=== PATIENT | male | born 1975 | race Hispanic/Latino ===

== ENCOUNTER 2016-12-01 06:57 | Emergency (ER) | payer OTHER ==
[~2016-12-01] VITALS: Ht 175.3 cm; Wt 108.9 kg
[~2016-12-01 06:57] MED LIST: ASPIR 8181 MG PO; IBUPROFEN800 MG PO; METFORMIN500 MG PO
--- NOTE | 2016-12-01 07:26 | ED HAND/WRIST INJURY COMPLAINT ---
History of Present Illness General Chief Complaint: Hand or Wrist Injury Stated Complaint: LT RING FINGER INJURY HIT IT WITH WEIGHT AT GYM Source: patient Exam Limitations: no limitations Vital Signs & Intake/Output Vital Signs & Intake/Output ED Intake and Output 12/02 0000 12/01 1200 Intake Total Output Total Balance Patient 240 lb Weight Allergies Coded Allergies: NO KNOWN ALLERGIES (06/18/12) Reconcile Medications Augmentin (Augmentin 500-125 Tablet) 500 MG-125 MG TABLET 1 TAB PO TID FINGER LACERATION Ibuprofen 800 MG TAB 1 TAB PO TID PRN PAIN Linagliptin/Metformin HCl (Jentadueto 2.5 MG-500 MG Tab) 2.5 MG-500 MG TABLET 1 TAB PO BID DIABETES (Reported) Oxycodone HCl/Acetaminophen (Percocet 5-325 MG Tablet) 5 MG-325 MG TABLET 1-2 TAB PO Q6P PRN pain Triage Note: STATES THAT 30 MINUTES PRIOR TO ARRIVAL HE WAS AT GYM AND SMASHED L POINTER FINGER BETWEEN [address], TOOK MOTRIN 20 MINUTES AGO , PT STATES THAT FINGER TIP WAS DISLOCATED AND HE PUT IT BACK. Triage Nurses Notes Reviewed? yes Occurred: this morning Duration: hour(s):, continues in ED Injury Environment: GYM Severity: severe Pain/Injury Location: Left: 4th finger. Context: crush Method of Injury: WEIGHT PLATE HPI: Patient presents for evaluation of the left ring finger injury. Patient states that he crushed the left ring finger between to wait plates while at the gym. He had a sudden onset of severe pain in the left nail and some deformity and bleeding. The pain worsens with attempts to move the finger and with palpation. Past History Travel History Traveled to [place] past 21 day No Medical History Any Pertinent Medical History? see below for history Neurological: NONE EENT: NONE Cardiovascular: NONE Respiratory: NONE Gastrointestinal: NONE Hepatic: NONE Renal: NONE Musculoskeletal: chronic knee pain Psychiatric: NONE Endocrine: NONE PANMAN/Reproductive: NONE Surgical History Surgical History: N Psychosocial History What is your primary language Arabic Tobacco Use: Never used ETOH Use: denies use Illicit Drug Use: denies illicit drug use Family History Hx Contributory? No Review of Systems Review of Systems Constitutional: Reports: no symptoms. EENTM: Reports: no symptoms. Respiratory: Reports: no symptoms. Cardiovascular: Reports: no symptoms. GI: Reports: no symptoms. Genitourinary: Reports: no symptoms. Musculoskeletal: Reports: see HPI. Skin: Reports: no symptoms. Neurological/Psychological: Reports: no symptoms. Hematologic/Endocrine: Reports: no symptoms. Immunologic/Allergic: Reports: no symptoms. All Other Systems: Reviewed and Negative Physical Exam Physical Exam Hand Left: SEE BELOW Hand Right: normal inspection Comments: Gen.: Well-nourished, well-developed, no acute respiratory distress. Mild distress secondary to finger pain Head: Normocephalic, atraumatic. Eyes: Normal inspection bilaterally Ears: Normal inspection bilaterally Nose: Normal inspection Throat/mouth : Moist mucosa Neck: Supple, full range of motion, no goiter Heart: Regular rate and rhythm, Lungs: Quiet respirations Back: Normal range of motion Extremities: Left ring finger: Complete nail avulsion with laceration of the radial aspect of the paronychia area Neurologic: Cranial nerves grossly intact, speech is clear Skin: warm and dry Psychiatric: Calm, cooperative, no apparent delusions or hallucinations Progress Differential Diagnosis: contusion, compartment syndrome, dislocation, fracture, sprain Plan of Care: Orders Procedure Date/time Status XRY-FINGERS, LEFT 12/01 705 Active Comments: Copious irrigation with normal saline under pressure, 4 sutures placed, 2 nonabsorbable sutures to approximate the skin and 2 absorbable sutures to repair nailbed. 12/01/2016 10:26:44 AM Sacha does not wish to wait for my discussion with Dr. Florez regarding this patient's injury. Nonadherent dressing and splint placed by RN. 12/01/2016 1:11:08 PM patient's case discussed with Dr. Florez in the emergency department. Dr. Florez has reviewed the patient's x-ray and the care provided. Departure Departure Disposition: HOME OR SELF CARE Condition: Stable Clinical Impression Primary Impression: Fracture of phalanx of left ring finger Qualifiers: Encounter type: initial encounter Fracture type: closed Phalanx: distal Fracture alignment: displaced Qualified Code: S62.635A - Displaced fracture of distal phalanx of left ring finger, initial encounter for closed fracture Secondary Impressions: Laceration of left ring finger Referrals: UNKNOWN (PCP/Family) Additional Instructions: Augmentin as prescribed complaint infection. Percocet as needed for pain. Follow-up with Dr. Florez within the next 48 hours for reevaluation. Ice and elevation during that time. Return if any concerns or sudden worsening. Please note that there might be incidental findings in your evaluation that are unrelated to the current emergency department visit. Please notify your primary care doctor about this emergency department visit in order to obtain and review all of the testing performed so that these incidental findings can be monitored as needed. If you had an x-ray performed, please understand that some fractures may not be seen on the initial set of x-rays. If your symptoms persist you might need a repeat set of x-rays to check for such a fracture. If you had a laceration evaluated, please understand that foreign bodies such as glass or wood may not be visible to the naked eye or on plain x-rays. If the wound becomes red, swollen, increasingly more painful or if there is any drainage from the wound, please have it reevaluated by a physician for the possibility of a retained foreign body. Thank you for choosing the [facility] Emergency Department for your care. It was a pleasure to serve you today. Serge Mackay M.D. [facility] Departure Forms: Customer Survey General Discharge Information Prescriptions: Current Visit Scripts Augmentin (Augmentin 500-125 Tablet) 1 TAB PO TID #30 TAB Oxycodone HCl/Acetaminophen (Percocet 5-325 MG Tablet) 1-2 TAB PO Q6P PRN pain #20 TAB Procedures Laceration/Wound Repair Laceration/Wound Repair: Wound Location: left ring finger Wound's Depth, Shape: contused tissue, flap, irregular, nail avulsed, subcutaneous Wound Length (cm): 2 Wound Explored: clean Irrigated w/ Saline (ccs): 120 Betadine Prep? Yes Anesthesia: 2% lidocaine Volume Anesthetic (ccs): 4 Wound Debrided: moderate Wound Repaired With: sutures Suture Size/Type: 5:0, nylon, 4.o Polysorb Number of Sutures: 4 Layer Closure? No Sterile Dressing Applied: Yes Splint Applied? Yes By Who? by nurse Type of Splint Applied: volar metal/foam
--- NOTE | 2016-12-01 07:55 | RADIOLOGY REPORT ---
EXAMINATION: XR FINGER, LEFT CLINICAL INFORMATION: Left pointer finger crush injury. COMPARISON: None TECHNIQUE: Three views of the left left fourth finger. FINDINGS: There is a minimally displaced comminuted fracture involving the tuft of the fourth digit distal phalanx. Surrounding soft tissue swelling is noted. Remaining osseous structures appear intact and in normal alignment. No radiopaque foreign bodies identified. No abnormal soft tissue calcifications. IMPRESSION: Minimally displaced comminuted fracture involving the tuft of the fourth digit distal phalanx. No radiopaque foreign body identified.
[2016-12-01] MEDS ORDERED: JENTADUETO 2.51 EACH PO (08:05)
[2016-12-01] MEDS ORDERED: AUGMENTIN 500-1 EACH PO (10:29)
[2016-12-01] MEDS ORDERED: PERCOCET 5-3251 EACH PO (10:29)
[2016-12-01 10:47] VITALS: BP 110/60
== END 2016-12-01 10:48 ==
LOC: ERH 06:57
DX: S62.605A Fracture of unspecified phalanx of left ring finger, initial encounter for closed fracture (principal); S61.215A Laceration without foreign body of left ring finger without damage to nail, initial encounter; W23.0XXA Caught, crushed, jammed, or pinched between moving objects, initial encounter; Y93.B3 Activity, free weights
CPT/HCPCS: 73140-LT; 90471; 90714; J2001